=== PATIENT | male | born 1955 | race Caucasian/White ===

== ENCOUNTER → 2019-04-13 | Outpatient (CLI) | payer MEDICARE ==
[~2019-04-13] MED LIST: ALLO100 PO; Allopurinol100 MG PO; INDO50 PO; OXYACE5T PO; TAMS.4ER PO
[2019-04-13 20:46] LABS: Adenovirus F 40/41 Not Detected (NOT DETECT); Astrovirus Not Detected (NOT DETECT); Campylobacter Sp Not Detected (NOT DETECT); Cryptosporidium Not Detected (NOT DETECT); Cyclospora Cayetanensis Not Detected (NOT DETECT); E. Coli O157 Not Detected (NOT DETECT); Entamoeba Histolytica Not Detected (NOT DETECT); Enteroaggregative E. coli-EAEC Not Detected (NOT DETECT); Enteropathogenic E. coli-EPEC Not Detected (NOT DETECT); Enterotoxigenic E. coli-ETEC Not Detected (NOT DETECT); Giardia Lamblia Not Detected (NOT DETECT); Norovirus GI/GII Not Detected (NOT DETECT); Plesiomonas Shigelloides Not Detected (NOT DETECT); Rotavirus A Not Detected (NOT DETECT); Salmonella Sp Not Detected (NOT DETECT); Sapovirus Not Detected (NOT DETECT); Shiga Toxin-prod E. coli-STEC Not Detected (NOT DETECT); Shigella/Enteroin E. coli-EIEC Not Detected (NOT DETECT); Vibrio Cholerae Not Detected (NOT DETECT); Vibrio Sp Not Detected (NOT DETECT); Yersinia Enterocolitica Not Detected (NOT DETECT)
== END | disposition home or self-care (01) ==
LOC: LAB SHORT 15:32 → LAB 15:32
PROVIDERS: Nurse Practitioner Family
DX: R19.7 Diarrhea, unspecified (principal); R10.84 Generalized abdominal pain; R42 Dizziness and giddiness
CPT/HCPCS: 0097U

== ENCOUNTER 2019-04-24 09:21 | Day surgery (SDC) | payer MEDICARE ==
--- NOTE | 2019-04-24 12:48 | NUR ---
PATIENT CAME FROM RADIOLOGY AT 1100 AM FOR RECOVERY. THE PATIENT'S VITALS WERE STABALE FOR THE ENTIRE TWO HOUR PERIOD. Patient up to Ambulate independently. Gait steady. Discharge instructions reviewed with patient. Patient verbalizes understanding. Copy given to patient to take home. Patient States Post-Procedure ride home has been arranged.
--- NOTE | 2019-04-26 09:28 | NUR ---
04/26/19 0928 Dory Gilbert EDITS TO PROCEDURE SCREEN FOR PURPOSES OF VERIFICATION.
== END 2019-04-24 12:59 | disposition home or self-care (01) ==
LOC: CT 09:21
DX: C22.7 Other specified carcinomas of liver (principal); K86.89 Other specified diseases of pancreas; F33.0 Major depressive disorder, recurrent, mild; I10 Essential (primary) hypertension; E78.5 Hyperlipidemia, unspecified; J45.20 Mild intermittent asthma, uncomplicated; Z88.5 Allergy status to narcotic agent; Z87.891 Personal history of nicotine dependence; Z79.899 Other long term (current) drug therapy
CPT/HCPCS: 47000; 77012; 88307; 88341; 88342

== ENCOUNTER 2019-05-03 07:17 | Day surgery (SDC) | payer MEDICARE ==
[~2019-05-03] VITALS: Ht 172.7 cm; Wt 89.8 kg
[~2019-05-03 07:17] MED LIST changes: +ALBU90OI INH; +OMEPRAZOLE20 MG PO; +ONDA4 PO; +TRAM50 PO
--- NOTE | 2019-05-03 08:21 | NUR ---
History, Chart, Medications and Allergies reviewed before start of procedure. Patient confirms NPO status and agrees with scheduled surgery. Lungs clear T/O to Auscultation. Patient States Post-Procedure ride home has been arranged. Pre-Op teaching done. Pt verbalizes understanding. PATIENT HAS NO JEWELRY, DENTURES, CONTACTS OR HEARING DEVICES PRESENT AT ADMIT.
--- NOTE | 2019-05-03 08:48 | NUR ---
CARLIFIED WITH DR PHAN ORDER FOR POST-OP PERCOCET OK TO GIVE DESPITE ALLERGY TO CODEINE.
== END 2019-05-03 10:49 | disposition home or self-care (01) ==
LOC: ORSCMMR 07:17 → ORD 08:45 → ORSCMMR 08:45
PROVIDERS: Surgery
PROC: B5161ZA Fluoroscopy of Right Subclavian Vein using Low Osmolar Contrast, Guidance (ICD-10-PCS; principal; 2019-05-03 08:45)
PROC: 05H533Z Insertion of Infusion Device into Right Subclavian Vein, Percutaneous Approach (ICD-10-PCS; principal; 2019-05-03 08:45)
DX: C25.2 Malignant neoplasm of tail of pancreas (principal); I10 Essential (primary) hypertension; J45.909 Unspecified asthma, uncomplicated; Z87.891 Personal history of nicotine dependence; K21.9 Gastro-esophageal reflux disease without esophagitis; Z79.899 Other long term (current) drug therapy
CPT/HCPCS: 77001; C1788; J0690; J1100; J1642; J2250; J2405; J2704; J7120

== ENCOUNTER 2019-06-03 01:40 | Emergency (ER) | payer MEDICARE ==
[~2019-06-03] VITALS: Ht 172.7 cm; Wt 93.0 kg
== END 2019-06-03 04:42 ==
LOC: ER 01:40
DX: I46.9 Cardiac arrest, cause unspecified (principal); Z88.5 Allergy status to narcotic agent; Z86.73 Personal history of transient ischemic attack (TIA), and cerebral infarction without residual deficits; Z87.891 Personal history of nicotine dependence
CPT/HCPCS: 31720; 92950; 93005; 93010; 94002; 96374-59; 96375-59; 99285-25; J0282; J0461; J7030